=== PATIENT | male | born 1995 | race Caucasian/White ===

== ENCOUNTER → 2022-04-05 | Day surgery (SDC) | payer MEDICAID, OTHER ==
[~2022-04-05] MED LIST: ACETAMINOPHEN500 M1 PO; COLACE100 MG PO; MOTRIN600 MG PO; OXY-IR 5MG5 MG PO
[2022-04-05 03:34] LABS: BASOPHIL 0.5 % (0-2); EOSINOPHIL 1.6 % (0-5); HCT 46.9 % (42.0-52.0); LYMPHOCYTE 13.7 % (15-48); MCH 29.7 pg (25.0-31.0); MCHC 34.1 g/dL (32.0-36.0); MONOCYTE 7.2 % (0-12); MPV 12.6 fL (6.0-9.5); NEUTROPHIL 76.5 % (41-80); NRBC 0; PLT 222 K/uL (150-400); RBC 5.39 M/uL (4.70-6.00); RDW 12.9 % (11.5-14.0); WBC 20.1 K/uL (4.0-10.5)
[2022-04-05 03:39] LABS: PROTHROMBIN TIME 12.9 SECONDS (11.9-13.9); PTT 28.3 SECONDS (24.9-34.6)
[2022-04-05 03:48] LABS: CORONAVIRUS 2019 SARS-COV-2 NEGATIVE (NEGATIVE); INFLUENZA A NAA NEGATIVE (NEGATIVE)
[2022-04-05 03:51] LABS: BILIRUBIN - TOTAL 0.4 mg/dL (0.2-1.0); BUN/CREAT RATIO (CALC) 25.9 RATIO; CREATININE 0.81 mg/dL (0.67-1.17); GLOBULIN (CALCULATION) 4.2 g/dL; POTASSIUM 4.9 mmol/L (3.5-5.1); TOTAL PROTEIN 8.2 g/dL (6.4-8.2)
[2022-04-05 04:05] LABS: BILIRUBIN NEGATIVE (NEGATIVE); BLOOD NEGATIVE Ery/uL (NEGATIVE); CLARITY CLEAR (CLEAR); COLOR YELLOW (YELLOW); GLUCOSE (U) NORMAL (NORMAL); LEUKOCYTES NEGATIVE Leu/uL (NEGATIVE); NITRITE NEGATIVE (NEGATIVE); PROTEIN NEGATIVE (NEGATIVE); SPECIFIC GRAVITY 1.025 (1.001-1.030); UROBILINOGEN 0.2 mg/dL (0.2-1.0)
== END | disposition home or self-care (01) ==
LOC: FER 02:41
PROVIDERS: Internal Medicine
DX: K35.30 Acute appendicitis with localized peritonitis, without perforation or gangrene (principal); K66.0 Peritoneal adhesions (postprocedural) (postinfection); Z91.048 Other nonmedicinal substance allergy status
CPT/HCPCS: 36415; 80053; 81003; 83605; 83690; 85025; 85610; 85730; J1100; J1885; J2250; J2405; J2543; J2550; J2704; J3010; J7120; U0002